=== PATIENT | male | born 1970 | race Hispanic/Latino ===

== ENCOUNTER 2018-04-27 14:13 | Emergency (ER) | payer SELFPAY ==
--- NOTE | 2018-04-27 16:10 | EDPHYS ---
Physician Documentation [facility] Name: Alfredo Hinkle Age: 47 yrs Sex: Male : 1970 Arrival Date: 04/27/2018 Time: 14:17 Bed 14 Private MD: None, None ED Physician Richard Robison HPI: 04/27 15:06 This 47 yrs old Male presents to ER via Ambulatory with complaints of Ankle jr8 Injury. 15:06 The patient presents with decreased range of motion, pain, swelling, tenderness. The jr8 complaints affect the right ankle. Onset: The symptoms/episode began/occurred acutely, last night. Associated signs and symptoms: Pertinent positives: knee pain. Modifying factors: The symptoms are alleviated by elevation of extremity, sitting, the symptoms are aggravated by movement. Severity of symptoms: At their worst the symptoms were mild, in the emergency department the symptoms are unchanged. The patient has not experienced similar symptoms in the past. The patient has not recently seen a physician. Patient stated that he was going to get a drink out of the refrigerator. Stated that there was water on floor and slipped twisting knee and ankle. Pain to affected areas. Can still weight bear but with pain . Historical: - Allergies: 14:28 NKDA; aj - Home Meds: 14:28 None [Active]; aj - PMHx: 14:28 Hypertension; aj - PSHx: 14:28 None; aj - Immunization history:: Adult Immunizations up to date. - Social history:: Smoking status: Patient/guardian denies using tobacco. - Ebola Screening: : Patient negative for fever greater than or equal to 101.5 degrees Fahrenheit, and additional compatible Ebola Virus Disease symptoms Patient denies exposure to infectious person Patient denies travel to an Ebola-affected area in the 21 days before illness onset No symptoms or risks identified at this time. ROS: 15:06 Eyes: Negative for injury, pain, redness, and discharge, ENT: Negative for injury, jr8 pain, and discharge, Neck: pain with motion of neck. Cardiovascular: Negative for chest pain, palpitations, and edema, Respiratory: Negative for shortness of breath, cough, wheezing, and pleuritic chest pain, Abdomen/GI: Negative for abdominal pain, nausea, vomiting, diarrhea, and constipation, Back: Negative for injury and pain, Skin: Negative for injury, rash, and discoloration, Neuro: Negative for headache, weakness, numbness, tingling, and seizure. 15:06 MS/extremity: Positive for decreased range of motion, pain, swelling, tenderness, of the right ankle, right knee. Exam: 15:06 Head/Face: Normocephalic, atraumatic. Eyes: Pupils equal round and reactive to light, jr8 extra-ocular motions intact. Lids and lashes normal. Conjunctiva and sclera are non-icteric and not injected. Cornea within normal limits. Periorbital areas with no swelling, redness, or edema. ENT: Nares patent. No nasal discharge, no septal abnormalities noted. Tympanic membranes are normal and external auditory canals are clear. Oropharynx with no redness, swelling, or masses, exudates, or evidence of obstruction, uvula midline. Mucous membranes moist. Cardiovascular: Regular rate and rhythm with a normal S1 and S2. No gallops, murmurs, or rubs. Normal PMI, no JVD. No pulse deficits. Respiratory: Lungs have equal breath sounds bilaterally, clear to auscultation and percussion. No rales, rhonchi or wheezes noted. No increased work of breathing, no retractions or nasal flaring. Abdomen/GI: Soft, non-tender, with normal bowel sounds. No distension or tympany. No guarding or rebound. No evidence of tenderness throughout. Back: No spinal tenderness. No costovertebral tenderness. Full range of motion. 15:06 Neck: External neck: is normal, C-spine: appears grossly normal, no vertebral tenderness, no crepitus, Thyroid: appears normal, Trachea: is midline with no obvious abnormalities, ROM/movement: pain, that is mild, with any movement, Lymph nodes: no appreciated lymphadenopathy, mild pain to lateral left neck . 15:06 Musculoskeletal/extremity: Extremities: grossly normal except: noted in the right leg: Mild tenderness to medial malleolus and to dorsal foot. Mild swelling noted. No ecchymosis noted , ROM: intact in all extremities, full active range of motion, full passive range of motion, limited active range of motion due to pain, limited passive range of motion due to pain, Circulation is intact in all extremities. Sensation intact. Vital Signs: 14:28 BP 183 / 98; Pulse 99; Resp 19; Temp 97.9; Pulse Ox 100% on R/A; Weight 95.25 kg; aj Height 5 ft. 7 in. (170.18 cm); 16:15 BP 176 / 94; Pulse 95; Resp 16; Pulse Ox 100% ; jl7 14:28 Body Mass Index 32.89 (95.25 kg, 170.18 cm) aj Procedures: 16:08 Splinting: Splint applied to right ankle using raffaele wrap, applied by nurse. Examined by jr8 me, post splint application: neurovascular intact, 2+ distal pulses palpable, brisk capillary refill noted, Patient tolerated well. MDM: 14:50 Patient medically screened. jr8 16:08 Data reviewed: vital signs, nurses notes, radiologic studies, plain films, and as a jr8 result, I will discharge patient. Data interpreted: Pulse oximetry: on room air is 100 %. Interpretation: normal. Counseling: I had a detailed discussion with the patient and/or guardian regarding: the historical points, exam findings, and any diagnostic results supporting the discharge/admit diagnosis, radiology results, the need for outpatient follow up, a orthopedic surgeon, to return to the emergency department if symptoms worsen or persist or if there are any questions or concerns that arise at home. 04/27 15:06 Order name: XRAY Ankle RIGHT 3 view 8 04/27 15:06 Order name: XRAY Knee RIGHT 3 view 8 04/27 16:08 Order name: Raffaele wrap-joint; Complete Time: 16:41 jr8 Administered Medications: No medications were administered Disposition: 04/27/18 16:09 Discharged to Home. Impression: Sprain of ankle, Sprain of other specified parts of right knee. - Condition is Stable. - Discharge Instructions: Ankle Sprain, Knee Sprain. - Prescriptions for Ibuprofen 800 mg Oral Tablet - take 1 tablet by ORAL route every 12 hours As needed take with food; 20 tablet. - Medication Reconciliation Form, Thank You Letter, Antibiotic Education, Prescription Opioid Use form. - Work release form (04/27/18 17:11). bd - Follow up: Chao Mcgrath MD; When: 5 - 6 days; Reason: Recheck today's complaints, Continuance of care, Re-evaluation by your physician. - Problem is new. - Symptoms have improved. Addendum: 04/29/2018 07:03 Co-signature as Attending Physician, Richard Robison MD I agree with the assessment and k dr plan of care. Signatures: Dispatcher [employer] EDSusu Pascual, RN Richard Rodgers MD MD [facility] Valdemar Man PA PA jr8 Giovani Gonzales, RN RN jl7 Claudia Parikh Corrections: (The following items were deleted from the chart) 04/27 16:10 16:09 04/27/2018 16:09 Discharged to Home. Impression: Sprain of ankle. Condition is jr8 Stable. Forms are Medication Reconciliation Form, Thank You Letter, Antibiotic Education, Prescription Opioid Use. Follow up: Dr. Chao Mcgrath; When: 5 - 6 days; Reason: Recheck today's complaints, Continuance of care, Re-evaluation by your physician. Problem is new. Symptoms have improved. jr8 16:41 16:10 04/27/2018 16:09 Discharged to Home. Impression: Sprain of ankle; Sprain of other jl7 specified parts of right knee. Condition is Stable. Forms are Medication Reconciliation Form, Thank You Letter, Antibiotic Education, Prescription Opioid Use. Follow up: Dr. Chao Mcgrath; When: 5 - 6 days; Reason: Recheck today's complaints, Continuance of care, Re-evaluation by your physician. Problem is new. Symptoms have improved. jr8
--- NOTE | 2018-04-27 16:10 | ER ---
Nurse's Notes [facility] Name: Alfredo Hinkle Age: 47 yrs Sex: Male : 1970 Arrival Date: 04/27/2018 Time: 14:17 Bed 14 Private MD: None, None Diagnosis: Sprain of ankle;Sprain of other specified parts of right knee Presentation: 04/27 14:27 Presenting complaint: Patient states: Right ankle pain that started today when patient aj slipped in kitchen at 0200 this AM. Transition of care: patient was not received from another setting of care. Onset of symptoms was April 27, 2018. Risk Assessment: Do you want to hurt yourself or someone else? Patient reports no desire to harm self or others. Care prior to arrival: None. 14:27 Method Of Arrival: Ambulatory 14:27 Acuity: [place] 3 aj Triage Assessment: 14:28 General: Appears in no apparent distress. comfortable, Behavior is calm, cooperative, aj appropriate for age. Pain: Complains of pain in anterior aspect of right ankle. Neuro: Level of Consciousness is awake, alert, obeys commands, Oriented to person, place, time, situation, Appropriate for age. Respiratory: Airway is patent Respiratory effort is even, unlabored, Respiratory pattern is regular, symmetrical. Derm: Skin is intact, is healthy with good turgor, Skin is pink, warm \T\ dry. normal. Musculoskeletal: Reports pain in anterior aspect of right ankle. Historical: - Allergies: 14:28 NKDA; aj - Home Meds: 14:28 None [Active]; aj - PMHx: 14:28 Hypertension; aj - PSHx: 14:28 None; aj - Immunization history:: Adult Immunizations up to date. - Social history:: Smoking status: Patient/guardian denies using tobacco. - Ebola Screening: : Patient negative for fever greater than or equal to 101.5 degrees Fahrenheit, and additional compatible Ebola Virus Disease symptoms Patient denies exposure to infectious person Patient denies travel to an Ebola-affected area in the 21 days before illness onset No symptoms or risks identified at this time. Screenin:30 Abuse screen: Denies threats or abuse. Denies injuries from another. Nutritional jl7 screening: No deficits noted. Tuberculosis screening: No symptoms or risk factors identified. Fall Risk Gait- Impaired (20 pts.). Total Davila Fall Scale indicates No Risk (0-24 pts). Assessment: 15:30 General: Appears in no apparent distress. uncomfortable, Behavior is calm, cooperative. jl7 Pain: Complains of pain in right knee and ankle Pain does not radiate. Pain currently is 7 out of 10 on a pain scale. Quality of pain is described as aching, Pain began 1 day ago. Neuro: Level of Consciousness is awake, alert, obeys commands. Cardiovascular: Patient's skin is warm and dry. Respiratory: Airway is patent Respiratory effort is even, unlabored, Respiratory pattern is regular, symmetrical. Musculoskeletal: Range of motion: limited in right knee and right ankle. Vital Signs: 14:28 BP 183 / 98; Pulse 99; Resp 19; Temp 97.9; Pulse Ox 100% on R/A; Weight 95.25 kg; aj Height 5 ft. 7 in. (170.18 cm); 16:15 BP 176 / 94; Pulse 95; Resp 16; Pulse Ox 100% ; jl7 14:28 Body Mass Index 32.89 (95.25 kg, 170.18 cm) aj ED Course: 14:17 Patient arrived in ED. mr 14:17 None, None is Private Physician. mr 14:28 Triage completed. aj 14:28 Arm band placed on right wrist. Patient placed in an exam room. aj 14:30 Giovani Gonzales, LANNY is Primary Nurse. jl7 14:50 Valdemar Man PA is PHCP. jr8 14:50 Richard Robison MD is Attending Physician. jr8 15:30 Patient has correct armband on for positive identification. Bed in low position. Call jl7 light in reach. Side rails up X 1. 15:32 XRAY Ankle RIGHT 3 view In Process Unspecified. EDMS 15:32 X-ray completed. Portable x-ray completed in exam room. Patient tolerated procedure jb2 well. 15:33 XRAY Knee RIGHT 3 view In Process Unspecified. EDMS 16:09 Chao Mcgrath MD is Referral Physician. jr8 16:36 No provider procedures requiring assistance completed. Patient did not have IV access jl7 during this emergency room visit. 16:40 Raffaele wrap to right ankle. jl7 Administered Medications: No medications were administered Outcome: 16:09 Discharge ordered by . jr8 16:39 Discharged to home ambulatory. jl7 16:39 Condition: stable 16:39 Discharge instructions given to patient, Instructed on discharge instructions, follow up and referral plans. medication usage, Demonstrated understanding of instructions, follow-up care, medications, Prescriptions given X 1. 16:41 Patient left the ED. jl7 Signatures: Dispatcher [employer] EDSusu Pascual, Jo-Ann Powell RN mr Alfredo Burnette2 Valdemar Man PA PA jr8 Leal, Jahala, RN RN jl7
--- NOTE | 2018-04-27 19:17 | RAD REPORT ---
EXAM DESCRIPTION: RAD - Knee Right 3 View - 04/27/2018 3:32 pm CLINICAL HISTORY: Slip and fall, knee pain COMPARISON: None. FINDINGS: No gross fracture deformity is seen. There is no dislocation or periosteal reaction.No francisco nt effusion seen. No joint space narrowing. Spurring is present at the quadriceps tendon attachment t o the patella. On the lateral view near the patella tendon origin from the patella there is a punctat e bone density. This is not seen on the AP or oblique views. Small bone avulsion is possible. Correla tion is needed with any exam findings that may indicate patella tendon injury. Contusion or edema rakesh nges are seen anterior to the patella and patella tendon. IMPRESSION: No gross fracture deformity is seen though there is a possible small punctate avulsion f rom the inferior margin of the patella. Correlation is needed to determine if the patient has any symptoms suggesting patella tendon injury. Clinical concerns for internal derangement or occult bony injury could be further assessed with MR im aging.
--- NOTE | 2018-04-27 19:32 | RAD REPORT ---
EXAM DESCRIPTION: RAD - Ankle Right 3 View - 04/27/2018 3:32 pm CLINICAL HISTORY: Right ankle pain, slip and fall, twisted ankle COMPARISON: None. FINDINGS: No fracture, dislocation or periosteal reaction. No joint effusion seen. No joint space na rrowing. Lateral soft tissue swelling is present. Patient has a moderately large plantar spur with sp urring as well at the Achilles attachment. IMPRESSION: Lateral soft tissue swelling with no fracture. Plantar spur.
== END 2018-04-27 16:41 | disposition home or self-care (01) ==
LOC: ER 14:13
PROC: 2W3SXYZ Immobilization of Right Foot using Other Device (ICD-10-PCS; principal; 2018-04-27)
DX: S93.401A Sprain of unspecified ligament of right ankle, initial encounter (principal); S83.8X1A Sprain of other specified parts of right knee, initial encounter; I10 Essential (primary) hypertension; W01.0XXA Fall on same level from slipping, tripping and stumbling without subsequent striking against object, initial encounter; Y93.89 Activity, other specified; Y92.9 Unspecified place or not applicable; Y99.9 Unspecified external cause status
CPT/HCPCS: 99283